=== PATIENT | male | born 1935 | race Caucasian/White ===

== ENCOUNTER 2016-12-04 09:23 | Emergency (ER) | payer OTHER, MEDICARE ==
--- NOTE | 2016-12-04 09:34 | EDPHY ---
H & P Stated Complaint: R SHOULDER PAIN AND R LEG R/O PE, [place] [facility] [place]ROS: CHIEF COMPLAINT: Right lower extremity swelling. HISTORY OF PRESENT ILLNESS: The patient is an 81-year-old male, sent from [facility] to rule out DVT and PE. The patient developed right calf pain around 12pm yesterday. Later that day he noticed swelling to his right lower extremity. He experienced a similar swelling two weeks ago that resolved without intervention. Since the initial right lower extremity swelling he reports intermittent right shoulder pain that is moderate in severity. He denies trauma to the shoulder or the leg. Shoulder ROM is not limited or painful. It is not painful to breathe and he does not feel short of breath.The patient was anticoagulated on Xarelto for atrial fibrillation. He discontinued this in September and resumed taking it 10 days ago. REVIEW OF SYSTEMS: A ten point review of systems was performed and is negative with the exception of the items mentioned in the HPI. Past medical history: Hypertension, [place] 10 years ago, Cardiac stenting, Retinal detachment, Atrial fibrillation. Dr. Beauchamp- Human Services Assistant. Family history: Unknown. Social history: Nonsmoker. Daily red wine use. No illicit drug use. Retired meteorologist. General Appearance: Alert. Vital signs reviewed. Blood pressure 130/81, heart rate 55. Eyes: Pupils equal and round, no conjunctival injection, no discharge. Anicteric. ENT, Mouth: Mucous membranes are moist, no oropharyngeal erythema or edema. Neck: No lymphadenopathy, supple. Respiratory: Lungs are clear to auscultation; no wheezes, rales, or rhonchi. Cardiovascular: Bradycardic, regular rhythm; no murmur, rub, or gallop. Gastrointestinal: Abdomen is soft and nontender, no masses or organomegaly, bowel sounds normal. Skin: Warm and dry, no rashes on exposed skin, normal color. Back: Nontender to palpation over the thoracolumbar spine. No CVAT. Extremities: Right lower extremity swelling from the ankle up to knee. No tenseness. Right calf tenderness. No change in skin color or temperature. FAROM right knee and ankle. Sensation intact to light touch over both LEs. Neurological: Alert and oriented. Moving all four extremities easily and equally. Psychiatric: Normal affect. 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 PMH: gynecomastia; [place] w/ stents x2; - Social History Smoking Status: Never smoked Constitutional: Initial Vital Signs Temperature (C) 36.8 C 12/04/16 09:28 Heart Rate 55 L 12/04/16 09:28 Respiratory Rate 18 12/04/16 09:28 Blood Pressure 130/81 H 12/04/16 09:28 O2 Sat (%) 97 12/04/16 09:28 O2 Delivery Mode Room Air Allergies/Adverse Reactions: No Known Allergies Allergy (Unverified 12/04/16 09:31) Home Medications: Medication Instructions Recorded Aspirin EC [Aspirin EC 81 mg (*)] 81 mg PO DAILY 06/30/15 Atorvastatin Calcium [Lipitor 40 40 mg PO DAILY18 06/30/15 mg (*)] C/E/Zn/Cu/OM3/DHA/EPA/LUT/ZEAX 1 each PO BID 06/30/15 [Preservision Areds 2 Softgel] Carvedilol [Coreg (*)] 6.25 mg PO BIDMEAL 06/30/15 Lisinopril [Zestril 5 mg (*)] 5 mg PO DAILY 06/30/15 Rivaroxaban [Xarelto 10mg (*)] 20 mg PO DAILY 12/04/16 Medical Decision Making - Diagnostics Imaging: Discussed imaging studies w/ call manager Radiologist ED Course/Re-evaluation: Patient presents with right lower extremity swelling and intermittent right shoulder pain. On exam patient has right lower extremity swelling extending from the ankle to the knee as well as calf tenderness. Plan for lower extremity Doppler US to rule out DVT. The patient is anticoagulated on Xarelto, he restarted this medication 10 days ago. Patient's MCV is elevated today. PT/INR is therapeutic. Chemistry is unremarkable. US is negative for DVT. 11:45 a.m.: I discussed findings with the patient. US showscomplex fluid collection in the right calf,possibly hematoma, no DVT. I suspect that this is a hematoma, given patient's anticoagulation. I do not find evidence of infection in history or physical. There is nothing to suggest cellulitis, abscess, sepsis. No Gomes's cyst on US. I do not find evidence of compartment syndrome. I will speak with the patient's nursing program chair re: anticoagulation. 12:55 p.m.: I spoke to Dr. Beauchamp, Cardiology, he recommends patient holding Xarelto and would rather patient be on Eliquis. He will see the patient in his office this week and discuss anticoagulation with him. Danger signs reviewed with patient. He is specifically advised to watch for signs of infection and compartment syndrome. - Data Points Laboratory Results: Laboratory Results 12/04/16 09:40 12/04/16 09:40 Departure - Departure Disposition: Home, Routine, Self-Care Clinical Impression: Hematoma of lower extremity Qualifiers: Encounter type: initial encounter Laterality: right Qualified Code(s): S80.11XA - Contusion of right lower leg, initial encounter Condition: Good Instructions: Hematoma (ED) Additional Instructions: 1. Discontinue your Xarelto for [address] Beauchamp's office will call you to arrange a followup appointment. If you do not hear from his office in the next 48 hours please call his office to arrange followup. Referrals: Damaso Ortiz MD [Primary Care Provider] - As per Instructions Report Scribed for: Shelby Felix Report Scribed by: Nitza Vasquez Date of Report: 12/04/16 Time of Report: 09:53 Physician Review and Approval Statement: 12/04/16 09:53 Portions of this note were transcribed by the medical staff services manager. I, Dr. Shelby Felix, personally performed the history, physical exam, and medical decision- making; and confirmed the accuracy of the information in the transcribed note.
[2016-12-04 09:57] LABS: % IMMATURE GRANULYOCYTES 0.7 % (0.0-1.1); ABSOLUTE IMMATURE GRANULOCYTES 0.06 10^3/uL (0.00-0.10); ADD DIFF? NO; ADD MORPH? NO; ADD SCAN? NO; ATYPICAL LYMPHOCYTE FLAG 10 (0-99); FRAGMENT RBC FLAG 0 (0-99); HEMATOCRIT 43.6 % (40.0-51.0); HEMOGLOBIN 14.5 g/dL (13.7-17.5); LEFT SHIFT FLG 0 (0-99); LIPEMIA HEMOLYSIS FLAG 80 (0-99); MEAN CELL HEMOGLOBIN 33.3 pg (27.9-34.1); MEAN CELL HEMOGLOBIN CONCENTR. 33.3 g/dL (32.4-36.7); MEAN PLATELET VOLUME 10.1 fL (8.7-11.7); PLATELET CLUMPS FLAG 0 (0-99); PLATELET COUNT 138 10^3/uL (150-400); RED BLOOD CELL COUNT 4.36 10^6/uL (4.40-6.38); RED CELL DISTRIBUTION WIDTH 14.1 % (11.5-15.2)
[2016-12-04 10:07] LABS: ANION GAP 12 mEq/L (8-16); CALCIUM 9.1 mg/dL (8.5-10.4); CARBON DIOXIDE 25 mEq/l (22-31); CHLORIDE 104 mEq/L (97-110); CREATININE 0.8 mg/dL (0.7-1.3); GLOMERULAR FILTRATION RATE > 60; GLUCOSE 85 mg/dL (70-100); SODIUM 141 mEq/L (134-144)
[2016-12-04 10:15] LABS: INR 1.37 (0.83-1.16); PROTIME(PATIENT) 16.9 SEC (12.0-15.0)
[2016-12-04 10:16] LABS: APTT 31.2 SEC (23.0-38.0)
[2016-12-04 13:11] VITALS: BP 150/89; PULSE 60; RESP 16; TEMP 97.5; O2SAT 95
== END 2016-12-04 13:13 | disposition home or self-care (01) ==
DX: M79.81 Nontraumatic hematoma of soft tissue (principal); I10 Essential (primary) hypertension; I25.2 Old myocardial infarction; Z79.01 Long term (current) use of anticoagulants; Z79.82 Long term (current) use of aspirin

== ENCOUNTER → 2016-12-11 | Outpatient (CLI) | payer OTHER, MEDICARE | LOC: BMCIMAGING 08:34 | PROVIDERS: ATTEND Internal Medicine | DX: M71.21 Synovial cyst of popliteal space [Baker], right knee (principal) ==

== ENCOUNTER → 2017-02-06 | Outpatient (CLI) | payer OTHER, MEDICARE | LOC: BHFA 09:00 | PROVIDERS: ATTEND Internal Medicine Cardiovascular Disease | DX: I25.10 Atherosclerotic heart disease of native coronary artery without angina pectoris (principal) | CPT/HCPCS: 78452; 93017; A9500 ==

== ENCOUNTER → 2018-03-14 | Outpatient (CLI) | payer OTHER, MEDICARE | LOC: BHFA 08:30 | PROVIDERS: ATTEND Internal Medicine Cardiovascular Disease | DX: I25.10 Atherosclerotic heart disease of native coronary artery without angina pectoris (principal); I48.91 Unspecified atrial fibrillation ==